=== PATIENT | female | born 1965 | race Caucasian/White ===

== ENCOUNTER 2017-10-10 07:28 | Day surgery (SDC) | payer OTHER ==
[~2017-10-10] VITALS: Ht 154.9 cm; Wt 81.6 kg
[2017-10-10] MEDS ORDERED: PANT40EC PO (08:24)
[2017-10-10] MEDS ORDERED: MIDAZOLAM 2 MG/2 ML VIAL ONE ×2 (08:44→08:45)
[2017-10-10] MEDS ORDERED: fentaNYL 0.05 MG/ML VIAL ONE (08:44)
[2017-10-10] MEDS ORDERED: MIDAZOLAM 2 MG/2 ML VIAL IVP ONE (09:35)
== END 2017-10-10 10:10 | disposition home or self-care (01) ==
LOC: MDS 07:28 → MMU 07:29 → MDS 10:10
PROVIDERS: ATTEND Internal Medicine Gastroenterology
DX: R13.10 Dysphagia, unspecified (principal); K21.9 Gastro-esophageal reflux disease without esophagitis; Z98.890 Other specified postprocedural states; Z79.899 Other long term (current) drug therapy; Z68.33 Body mass index [BMI] 33.0-33.9, adult
CPT/HCPCS: 36415; 43239; 86677; J2250; J3010

== ENCOUNTER 2019-01-08 09:32 | Day surgery (SDC) | payer OTHER ==
[~2019-01-08] VITALS: Ht 154.9 cm; Wt 74.8 kg
[~2019-01-08 09:32] MED LIST: PANT40EC PO
[2019-01-08] MEDS ORDERED: MIDAZOLAM 2 MG/2 ML VIAL ONE (12:49)
[2019-01-08] MEDS ORDERED: LIDOCAINE 2% 100 MG/5 ML UJET TP ONE (12:49)
[2019-01-08] MEDS: fentaNYL 0.05 MG/ML VIAL ONE ×2 (12:56→13:11)
== END 2019-01-08 13:50 | disposition home or self-care (01) ==
LOC: MDS 09:32 → MTU 09:33 → MDS 13:50
PROVIDERS: ATTEND Internal Medicine Gastroenterology
DX: Z12.11 Encounter for screening for malignant neoplasm of colon (principal); K21.9 Gastro-esophageal reflux disease without esophagitis; E66.9 Obesity, unspecified; Z98.51 Tubal ligation status; Z98.890 Other specified postprocedural states
CPT/HCPCS: 45378; J3010; J2250